=== PATIENT | female | born 1955 | race Caucasian/White ===

== ENCOUNTER 2016-10-25 12:53 | Observation (INO) | payer BC ==
[~2016-10-25] VITALS: Ht 162.6 cm; Wt 80.0 kg
[~2016-10-25 12:53] MED LIST: ALBU17I INH; KETO10 PO; LORA10TA7 PO; LORT7.5T3 PO
--- NOTE | 2016-10-25 13:55 | PD ---
HPI Chief Complaint: Numbness/Tingling Time Seen by Provider: 13:40 Travel History International Travel<30 days: No Contact w/Intl Traveler<30days: No Traveled to known affect area: No History of Present Illness HPI The patient was seen and examined in the presence of the nurse. This patient has had 4 episodes over the last 6 weeks where she developed a brief spell of weakness and numbness in her left arm. It lasts about 3 or 4 minutes and resolves. She never had any chest pain or pressure or tightness or heaviness. No headache or neck pain. There is been no injury. She doesn't take any blood thinners. No history of CVA or OH. No alleviating factors. They spontaneously resolve on the wrong. Severity of symptoms is moderate when present but currently she is asymptomatic. PFSH Past Medical History Cancer: No Diabetes: No Glaucoma: No Hepatitis: Yes (HEP A) Hiatal Hernia: No Hypertension: No Thyroid Disease: No Past Surgical History Gynecologic Surgery: Yes (TUBAL LIG) Pacemaker: No Thoracic Surgery: Yes (SHERLY. BREAST REDUX) Social History Alcohol Use: Yes (OCCAS) Tobacco Use: Yes (QUIT 19 YRS) Allergies-Medications (Allergen,Severity, Reaction): Coded Allergies: Penicillin (Verified Allergy, Severe, SWELLING, 06/27/08) Reported Meds & Prescriptions Reported Meds & Active Scripts Active Review of Systems General / Constitutional: No: Fever Eyes: No: Visual changes HENT: No: Headaches Cardiovascular: No: Chest Pain or Discomfort Respiratory: No: Shortness of Breath Gastrointestinal: No: Abdominal Pain Genitourinary: No: Dysuria Musculoskeletal: No: Pain Skin: No Rash Neurologic: Positive: Weakness, Sensory Disturbance Psychiatric: No: Depression Endocrine: No: Polydipsia Hematologic/Lymphatic: No: Easy Bruising Physical Exam Narrative GENERAL: Well-nourished, well-developed patient in no apparent distress. SKIN: Warm and dry. HEAD: Atraumatic. Normocephalic. EYES: Pupils equal and round. No scleral icterus. No injection or drainage. ENT: No nasal bleeding or discharge. Mucous membranes pink and moist. NECK: Trachea midline. No JVD. CARDIOVASCULAR: Regular rate and rhythm. No murmur appreciated. RESPIRATORY: No accessory muscle use. Clear to auscultation. Breath sounds equal bilaterally. GASTROINTESTINAL: Abdomen soft, non-tender, nondistended. Hepatic and splenic margins not palpable. MUSCULOSKELETAL: No obvious deformities. No clubbing. No cyanosis. No edema. NEUROLOGICAL: Awake and alert. No obvious cranial nerve deficits. Motor grossly within normal limits. Normal speech. Sensation subjectively intact PSYCHIATRIC: Appropriate mood and affect; insight and judgment normal. Data Data Orders Electrocardiogram (10/25/16 ) Ct Brain W/O Iv Contrast(Rout) (10/25/16 ) Ckmb (Isoenzyme) Profile (10/25/16 14:38) Troponin I (10/25/16 14:38) Complete Blood Count With Diff (10/25/16 14:38) Basic Metabolic Panel (Bmp) (10/25/16 14:38) Prothrombin Time / Inr (Pt) (10/25/16 14:38) Act Partial Throm Time (Ptt) (10/25/16 14:38) Labs Laboratory Tests Test 10/25/16 14:40 White Blood Count 7.1 TH/MM3 Red Blood Count 4.18 MIL/MM3 Hemoglobin 12.8 GM/DL Hematocrit 38.1 % Mean Corpuscular Volume 91.1 FL Mean Corpuscular Hemoglobin 30.5 PG Mean Corpuscular Hemoglobin 33.5 % Concent Red Cell Distribution Width 14.6 % Platelet Count 292 TH/MM3 Mean Platelet Volume 10.8 FL Neutrophils (%) (Auto) 55.2 % Lymphocytes (%) (Auto) 26.1 % Monocytes (%) (Auto) 11.0 % Eosinophils (%) (Auto) 6.0 % Basophils (%) (Auto) 1.7 % Neutrophils # (Auto) 3.9 TH/MM3 Lymphocytes # (Auto) 1.9 TH/MM3 Monocytes # (Auto) 0.8 TH/MM3 Eosinophils # (Auto) 0.4 TH/MM3 Basophils # (Auto) 0.1 TH/MM3 CBC Comment DIFF FINAL Differential Comment Prothrombin Time 11.1 SEC Prothromb Time International 1.0 RATIO Ratio Activated Partial 28.2 SEC Thromboplast Time MDM Medical Decision Making Medical Screen Exam Complete: Yes Emergency Medical Condition: Yes Medical Record Reviewed: Yes Differential Diagnosis Radiculopathy, neuropathy, CVA, TIA Narrative Course I have reviewed the patient's electronic medical record. Patient at this time is asymptomatic and is neurologically intact. She's had a few episodes of very brief left arm weakness and numbness. I don't have clinical suspicion of ACS or CVA. Seems more consistent with radiculopathy or pinched nerve. Brain CT shows age-indeterminate right basal ganglion infarct I reviewed her EKG which shows sinus rhythm without ST elevation or ectopy CBC is normal Metabolic profile is pending but will be reviewed Coagulation studies are normal I gave her an aspirin Given that she is had four distinct episodes including this morning with left arm numbness and weakness and right sided CVA evident I have recommended 23 hour observation on telemetry for neurologic workup and patient is agreeable I discussed with hospitalist who agrees as well Diagnosis Primary Impression: TIA (transient ischemic attack) Qualified Code: G45.9 - Transient cerebral ischemia, unspecified type Admitting Information Admitting Physician Requests: Observation Jeremie Pennington MD Oct 25, 2016 13:54
[2016-10-25 15:05] LABS: AUTOMATED NEUTROPHIL # 3.9 TH/MM3 (1.8-7.7); BASOPHIL # 0.1 TH/MM3 (0-0.2); BASOPHIL % 1.7 % (0.0-2.0); EOSINOPHIL # 0.4 TH/MM3 (0-0.4); HEMATOCRIT 38.1 % (35.0-46.0); HEMO FLAGS DIFF FINAL; LYMPH % 26.1 % (9.0-44.0); LYMPHOCYTE # 1.9 TH/MM3 (1.0-4.8); MEAN CELL VOLUME 91.1 FL (80.0-100.0); MEAN CORPUSCULAR HEMOGLOBIN 30.5 PG (27.0-34.0); MEAN CORPUSCULAR HGB CONC 33.5 % (32.0-36.0); NEUT % 55.2 % (16.0-70.0); PLATELET COUNT 292 TH/MM3 (150-450); RED BLOOD COUNT 4.18 MIL/MM3 (4.00-5.30); RED CELL DISTRIBUTION WIDTH 14.6 % (11.6-17.2); WHITE BLOOD COUNT 7.1 TH/MM3 (4.0-11.0)
--- NOTE | 2016-10-25 15:12 | RADRPT ---
EXAM DATE/TIME: 10/25/2016 14:51 [facility] COMPARISON: No previous studies available for comparison. INDICATIONS : Left arm numbness and tingling off and on x2 months. RADIATION DOSE: 47.43 CTDIvol (mGy) MEDICAL HISTORY : None SURGICAL HISTORY : None. ENCOUNTER: Initial ACUITY: 2 months PAIN SCALE: 0/10 LOCATION: cranial TECHNIQUE: Multiple contiguous axial images were obtained of the head. Using automated exposure control and adj ustment of the mA and/or kV according to patient size, radiation dose was kept as low as reasonably a chievable to obtain optimal diagnostic quality images. FINDINGS: CEREBRUM: Age-indeterminate lacunar infarct in the right basal ganglia. The ventricles are normal for age. No evidence of midline shift, mass lesion, or hemorrhage.. No extra-axial fluid collections are seen. POSTERIOR FOSSA: The cerebellum and brainstem are intact. The 4th ventricle is midline. The cerebellopontine angle i s unremarkable. EXTRACRANIAL: Moderate severity partial opacification of the ethmoid sinuses. SKULL: The calvaria is intact. No evidence of skull fracture. CONCLUSION: 1. Age-indeterminate right basal ganglia lacunar infarct. 2. Ethmoid sinus disease. Dwight Chaves MD on October 25, 2016 at 15:08 Board Certified Radiologist. This report was verified electronically.
[2016-10-25 15:16] LABS: APTT (PATIENT) 28.2 SEC (24.3-30.1); PROTHROMBIN TIME - PATIENT 11.1 SEC (9.8-11.6)
[2016-10-25 15:44] LABS: ANION GAP 7 MEQ/L (5-15); BICARBONATE 28.8 MEQ/L (21.0-32.0); BLOOD UREA NITROGEN 12 MG/DL (7-18); CHLORIDE 102 MEQ/L (98-107); CREATINE KINASE 131 U/L (26-192); GLOMERULAR FILTRATION RATE 66 ML/MIN (>89); POTASSIUM 3.8 MEQ/L (3.5-5.1); SODIUM (NA) 138 MEQ/L (136-145)
[2016-10-25] MEDS ORDERED: ASPIRIN 325 MG TAB PO ONE (15:45)
[2016-10-25] MEDS ORDERED: BISACODYL 10 MG SUPP PR PRN (15:45)
[2016-10-25] MEDS ORDERED: SENNOSIDES 8.6 MG TAB PO PRN (15:45)
[2016-10-25] MEDS ORDERED: ACETAMINOPHEN 325 MG TAB PO PRN (15:45)
[2016-10-25] MEDS ORDERED: MAGNESIUM HYDROXIDE SUSP 30 ML CUP PO PRN (15:45)
[2016-10-25] MEDS ORDERED: NALOXONE HCL 0.4 MG/ML AMP IV PRN (15:45)
[2016-10-25] MEDS ORDERED: SODIUM CHLORIDE 0.9% FLUSH 5 ML FLUSH FLUSH PRN (15:45)
[2016-10-25] MEDS ORDERED: ONDANSETRON HCL 4 MG/2 ML VIAL IVP PRN (15:45)
[2016-10-25 15:56] LABS: CKMB 1.3 NG/ML (0.5-3.6)
[2016-10-25 17:40] VITALS: BP 166/70
[2016-10-25] MEDS: SODIUM CHLOR 0.9% 1000 ML INJ 1,000 ML IV SCH (18:13)
[2016-10-25] MEDS: SODIUM CHLORIDE 0.9% FLUSH 5 ML FLUSH FLUSH SCH (18:14)
[2016-10-25] MEDS: HEPARIN SODIUM - SQ 10,000 UNITS/ML VIAL SQ SCH (18:14)
[2016-10-25 18:31] VITALS: BP 146/69; PULSE 82; RESP 18; O2SAT 97
[2016-10-25 19:56] VITALS: BP 142/68; PULSE 76; RESP 20; TEMP 97.6; O2SAT 96
[2016-10-26 00:22] VITALS: BP 136/64; PULSE 60; RESP 20; TEMP 98; O2SAT 96
[2016-10-26] MEDS: SODIUM CHLOR 0.9% 1000 ML INJ 1,000 ML IV SCH (00:27)
[2016-10-26 03:42] VITALS: BP 121/55; PULSE 79; RESP 16; TEMP 98.1; O2SAT 92
[2016-10-26 04:00] VITALS: PULSE 60
[2016-10-26 04:53] LABS: BASOPHIL # 0.1 TH/MM3 (0-0.2); BASOPHIL % 1.8 % (0.0-2.0); EOSINOPHIL # 0.4 TH/MM3 (0-0.4); EOSINOPHIL % 6.2 % (0.0-4.0); HEMATOCRIT 36.1 % (35.0-46.0); HEMO FLAGS DIFF FINAL; LYMPH % 31.7 % (9.0-44.0); MEAN CORPUSCULAR HEMOGLOBIN 30.6 PG (27.0-34.0); MEAN CORPUSCULAR HGB CONC 33.6 % (32.0-36.0); MONO % 12.6 % (0.0-8.0); NEUT % 47.7 % (16.0-70.0); PLATELET COUNT 258 TH/MM3 (150-450); RED BLOOD COUNT 3.96 MIL/MM3 (4.00-5.30); RED CELL DISTRIBUTION WIDTH 14.4 % (11.6-17.2); WHITE BLOOD COUNT 6.4 TH/MM3 (4.0-11.0)
[2016-10-26 05:11] LABS: BICARBONATE 26.3 MEQ/L (21.0-32.0); POTASSIUM 3.8 MEQ/L (3.5-5.1)
[2016-10-26 05:13] LABS: HDL CHOLESTEROL 42.2 MG/DL (40.0-60.0)
[2016-10-26] MEDS: HEPARIN SODIUM - SQ 10,000 UNITS/ML VIAL SQ SCH (05:17)
[2016-10-26] MEDS ORDERED: GADODIAMIDE PF 287 MG/ML 20 ML VIAL (for RAD MRI) IV ONE (07:54)
[2016-10-26 08:00] VITALS: BP 149/65; PULSE 71; RESP 18; TEMP 96.9; O2SAT 97
[2016-10-26 08:01] LABS: INDIRECT BILIRUBIN 0.2 MG/DL (0.0-0.8); TOTAL BILIRUBIN ADULT 0.3 MG/DL (0.2-1.0)
--- NOTE | 2016-10-26 08:15 | RADRPT ---
EXAM DATE/TIME: 10/26/2016 07:39 [facility] COMPARISON: No previous studies available for comparison. INDICATIONS : Left sided weakness. Syncope with falling. MEDICAL HISTORY : Hypertension. SURGICAL HISTORY : Tonsillectomy. Cholecystectomy. Tubal ligation. Bladder sling. Orthopedic. Breast reduction. ENCOUNTER: Initial ACUITY: 1 day PAIN SCORE: 0/10 LOCATION: cranial TECHNIQUE: Multiplanar, multisequence MRI of the brain was performed without contrast. FINDINGS: CEREBRUM: The ventricles are normal for age. No evidence of midline shift, mass lesion, hemorrhage or acute in farction. No extraaxial fluid collections are seen. The pituitary gland and suprasellar cistern are normal in configuration. WHITE MATTER: No significant signal abnormalities are seen in the white matter. POSTERIOR FOSSA: The cerebellum and brainstem are intact. The 4th ventricle is midline. The cerebellopontine angle is unremarkable. The cerebellar tonsils are normal in position. DIFFUSION IMAGING: No focal areas of restricted diffusion are seen. No evidence of acute infarction. EXTRACRANIAL: The visualized portions of the orbits are unremarkable. Complete opacification of a small right maxil gordon sinus. CONCLUSION: 1. No acute intracranial abnormality. No acute infarction seen. 2. Complete opacification of a small right maxillary sinus. Ion Orellana MD on October 26, 2016 at 8:08 Board Certified Radiologist. This report was verified electronically.
--- NOTE | 2016-10-26 08:27 | RADRPT ---
EXAM DATE/TIME: 10/26/2016 07:39 [facility] COMPARISON: No previous studies available for comparison. INDICATIONS : Left sided weakness. Syncope with falling. CONTRAST: 20 cc Omniscan (gadodiamide) IV MEDICAL HISTORY : Hypertension. SURGICAL HISTORY : Tonsillectomy. Cholecystectomy. Tubal ligation. Bladder sling. Orthopedic. Breast reduction. ENCOUNTER: Initial ACUITY: 1 day PAIN SCORE: 0/10 LOCATION: cranial Percent stenosis is calculated using the diameter of the stenotic region over the diameter of the nor mal distal internal carotid artery. TECHNIQUE: Bolus infused MRA of the extracranial circulation was performed using a neurovascular coil. Post pro cessing was performed including rotationg subvolume maximum intensity projections of each carotid art jose, rotating full volume maximum intensity projections of both carotid arteries, sagittal and angelo l sliding thin slab reformations of each carotid artery, and left oblique sliding thin slab reformati on through the aortic arch to include the origin of the arch branch vessels. FINDINGS: AORTIC ARCH: There is a three vessel origin of the great vessels from the aorta. No evidence of ostial narrowing. RIGHT CAROTID: The common carotid artery is intact. The carotid bulb has a normal configuration without ulceration or narrowing. The internal carotid artery lumen is smooth without stenosis. The external carotid ar krystyna is intact. LEFT CAROTID: The common carotid artery is intact. The carotid bulb has a normal configuration without ulceration or narrowing. The internal carotid artery lumen is smooth without stenosis. The external carotid ar krystyna is intact. VERTEBRALS: The vertebral arteries have a symmetric diameter. No stenotic lesions are seen. CONCLUSION: Normal carotid arteries. Ion Orellana MD on October 26, 2016 at 8:16 Board Certified Radiologist. This report was verified electronically.
[2016-10-26] MEDS ORDERED: PANTOPRAZOLE SOD 40 MG DELAYED RELEASE TAB PO SCH (09:00)
[2016-10-26] MEDS: SODIUM CHLORIDE 0.9% FLUSH 5 ML FLUSH FLUSH SCH (09:00)
[2016-10-26] MEDS ORDERED: ASPIRIN 81 MG CHEW TAB CHEW SCH (09:00)
--- NOTE | 2016-10-26 11:15 | HP.UPD ---
H&P Update Note This is a very pleasant 61-year-old female who came into the emergency department at [facility] yesterday with weakness in the left upper extremity. She said that she had had some trouble with her cervical spine in the past. 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 Initial CT scan of the brain showed a suspicion of a stroke however MRI was negative. She was seen and examined earlier today by the undersigned in room f 69 She was seen by the on-call neurologist today, Dr. Cook. She is being discharged home in stable condition on baby aspirin. She will be following with neurology as outpatient for further management of her possible cervical nerve impingement Yeison Jane MD Oct 26, 2016 11:13
[2016-10-26] MEDS ORDERED: ASPI81TA11 PO (11:17)
[2016-10-26 12:00] VITALS: PULSE 61
[2016-10-26 12:07] LABS: BLOOD, URINE NEG (NEG); GLUCOSE,URINE NEG (NEG); KETONE, URINE NEG (NEG); NITRITE,URINE NEG (NEG); SQUAMOUS EPITHELIAL CELL URINE 2 /hpf (0-5); URINE COLOR YELLOW (YELLW/STRAW)
[2016-10-26 12:12] LABS: COMMENT (UR) CULT NOT INDICATED; CULTURE IF INDICATED CULT NOT INDICATED
[2016-10-26] MEDS ORDERED: ATORVASTATIN 20 MG TAB PO SCH (21:00)
--- NOTE | 2016-10-27 05:31 | MB ---
cc: NOMI DAVID MD DATE OF : 1955 DATE OF CONSULTATION: 10/26/2016 REASON FOR CONSULTATION: TIA HISTORY OF PRESENT ILLNESS Ms. Anderson is a 61 year-old female who presented to the emergency room at [facility] with weakness in the left upper extremity. The patient describes weakness and numbness of the left upper extremity that starts suddenly and denies involvement of the left side of the face, headache, double vision, blurred vision, slurred speech, or weakness of the lower extremity. This has happened two times when the patient was up and working at home, and the last time it happened when she was at work sitting at the computer working. She denies history of head trauma, loss of consciousness, disorientation, convulsions. The patient states she has ringing in the left ear. She states she had some "trouble with her cervical spine in the past." She uses the computer all day. Initial head CT scan without contrast was reported with possible age indeterminate right basal ganglia lacunar infarct with ethmoid sinus disease. However, MRI of the brain without contrast revealed no acute abnormality and no acute infarction seen, complete opacification of the right maxillary sinus was noted. REVIEW OF SYSTEMS A 12-point review of systems is negative except for what is stated in the HPI. PAST MEDICAL HISTORY Hepatitis A. PAST SURGICAL HISTORY 1. Tubal ligation. 2. Bilateral breast reduction. SOCIAL HISTORY: Occasional alcohol, ex tobacco smoker. Denies recreational drug abuse. ALLERGIES PENICILLIN EXAMINATION General: Awake, alert, very good historian not in apparent distress HEENT: Atraumatic, normocephalic. Intact vision, intact hearing Neck: Trachea in the midline. No signs of meningeal irritation. Cardiovascular: Regular rate and rhythm. No murmurs. Respiratory: Clear to auscultation. No wheezes. Musculoskeletal: No deformities. No clubbing, no edema. Neurological: Awake, alert, oriented to time, person and place. Intact speech content. Intact memory. Cranial nerves II-XII are grossly intact. Muscle strength, bilateral symmetrical 5/5, no abnormal movement, normal tone. Sensation is intact bilateral and symmetrical. Reflexes brisk upper extremities 2+ with finger flexion bilateral, plantars are bilaterally downgoing. Cerebellar function, [id number] and [id number] are intact. Gait and stance normal. Intact tandem gait, negative Romberg sign. Psychologic: Mood and behavior are appropriate, insight and judgment are normal. LABORATORY DATA White blood cells 7.1, hemoglobin 12.8, platelet 292, INR 1. DIAGNOSTICS IMAGING - Head CT scan was reported as with age indeterminate right basoganglia lacunar infarct, ethmoid sinus disease. - MRI of the brain without contrast was reported with no acute intracranial abnormality and complete opacification of right maxillary sinus. - MRA was reported with normal carotid arteries, no stenosis seen. DIAGNOSTIC IMPRESSION 1. TIA. 2. Cervical degenerative disk disease. PLAN 1. Aspirin 81 mg daily. 2. Follow up with neurology as an outpatient for further workup for her cervical spine and muscular tests. Thank you for the opportunity to participate in the care of your patient. MD PATRICIA Gutierrez/BOBBY /11:55 PM /4:52 AM VISH
--- NOTE | 2016-10-27 11:46 | EKG ---
Date Performed: 10/25/2016 Time Performed: 13:55:30 PTAGE: 61 years EKG: Sinus rhythm NONSPECIFIC T-WAVE ABNORMALITY BORDERLINE ECG NO PREVIOUS TRACING DOCTOR: Mitzi Arroyo Interpretating Date/Time 10/27/2016 11:45:26
--- NOTE | 2016-10-29 08:38 | MH ---
cc: GABBY MCGILL MD DATE OF ADMISSION: 10/25/2016 DATE OF : 1955 CHIEF COMPLAINT Left-sided weakness and numbness. HISTORY OF PRESENT ILLNESS This is a pleasant 61-year-old white mildly obese female who has been in her usual state of health up until before Melissa. She has noted approximately three episodes of some weakness and numbness on her left side. She states the first one was before Melissa and it only lasted a few minutes. She states that she was tired, over-stressed and had a lot going on at [place] so she did not think anything about it. She denies any fever, no headache, no chest pain, no shortness of breath. The patient did have a bout of bronchitis several weeks before this incident and had been on antibiotics and steroids and thought that might have been part of what was making her feel bad. She denies any dizziness. No syncopal episodes. No recent weight gain or weight loss. No palpitations. The patient had seen her PCP last week and he had thought that she may need to see cardiology and GI for check-ups to make sure nothing else was going on. The patient has had some abdominal pain and bloating more of a chronic nature and thinks that she may be lactose intolerant. She and her GI doctor are planning some testing in the near future. She had an appointment with cardiology, Dr. Fitch, but has not been able to see him yet before she had this incident with the numbness and weakness happening again. She did have some palpitations that she saw him for in 2013 or 2014, had an echo and a stress test. She states he told her that she might have a very small blockage on the bottom backside of her heart but he did not think it was anything to worry about at this time. She has had no heart caths. Currently the patient is having none of her symptoms now and is going downstairs for an MRI. PAST MEDICAL HISTORY 1. Sinus disease. 2. Hepatitis A. PAST SURGICAL HISTORY 1. Tubal ligation. 2. Bilateral breast reduction. ALLERGIES Penicillin. MEDICATIONS None brought in. SOCIAL HISTORY The patient is , currently lives at home with her . She is raising her 10-year-old grandchild. She denies any tobacco use, quit approximately 19 years ago. Minimal social alcohol use. Currently is on a dietary regimen. FAMILY HISTORY Arthritis. REVIEW OF SYSTEMS A 12-point review was obtained with positives and negatives initiated in the HPI which include weakness and numbness on the left side, anxiety over her current condition mild, obesity mild. Other systems are negative or unremarkable. PHYSICAL EXAMINATION VITAL SIGNS: Temperature 98.1, pulse 79, respirations 16, blood pressure 121/65. Her blood pressure on admission to the ER was 166/70 and 142/68, and has continued to climb down. O2 sat between 92 and 98. GENERAL: This is a mildly obese, well-nourished, well-developed white female who looks her stated age, resting in the bed. No acute distress at this time. SKIN: [place], warm and dry. HEENT: Atraumatic, normocephalic. PERRLA at 3 mm. No scleral icterus. No drainage from her eyes, ears or oral cavity. Mucous membranes are pink and moist. Trachea is midline. NECK: Supple. HEART: S1, S2. Distant heart sounds but no murmurs, rubs or gallops appreciated. LUNGS: Clear to auscultation anteriorly and posteriorly with equal breath sounds bilaterally. ABDOMEN: Round, soft, nontender, nondistended. EXTREMITIES: She moves all extremities with purpose. No clubbing, cyanosis or edema. No pedal edema. Pulses are intact. NEUROLOGIC: Awake and alert x4, a good historian. 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 Speech is normal and clear. PSYCHIATRIC: Appropriate mood and affect. Insight and judgment is normal. Mild anxiety over current condition. DIAGNOSTIC DATA INR is 1. White count 6.4, RBC 3.96, hemoglobin 12.1, hematocrit 36.1, platelet count 0.25%, mono absolute 12.6, eosinophils 6.2. Sodium 142, potassium 3.8, chloride 108, carbon dioxide 26.3, anion gap 8, BUN 10, creatinine 0.86, GFR 67, random glucose 94, calcium 8.5. We have pending labs with bilirubin, AST, ALT, albumin. Troponin is less than 0.02. Triglycerides 168, LDL 109, total cholesterol 185, HDL 42.2. Imaging studies show a CT scan with ethmoid sinus disease and an undetermined right basal ganglia infarct. ASSESSMENT 1. TIA, possible CVA. 2. Sinus disease. 3. Anxiety, mild. 4. Obesity. 5. Hyperlipidemia. PLAN Our plan is to admit for observation. DVT prophylaxis with an aspirin chew and heparin. PUD prophylaxis with Protonix. The patient will have a UA and C&S if warranted to finish up labs. MRI, MRA, 2-D echo. Neurology has been consulted for expert opinion. Vital signs will be q.4h. Cardiac telemetry monitoring. Heart-healthy diet. Reconcile her medications. EKG. Bed rest with bedside commode. Only up with help. Maintain with her telemetry. After further testing we will follow her needs. Dictated by: CARL Chase MD JAMES Damon/LIYAH /7:54 AM 8:37 AM
== END 2016-10-26 15:25 | disposition home or self-care (01) ==
LOC: NEPB 12:53 → NEDA 15:43 → NEPFCDU 18:02
PROVIDERS: ADMIT Specialist; ATTEND Specialist
DX: G45.9 Transient cerebral ischemic attack, unspecified (principal); F41.9 Anxiety disorder, unspecified; E78.5 Hyperlipidemia, unspecified; E66.9 Obesity, unspecified; M50.30 Other cervical disc degeneration, unspecified cervical region; R94.31 Abnormal electrocardiogram [ECG] [EKG]; Z87.891 Personal history of nicotine dependence; Z79.82 Long term (current) use of aspirin; Z68.30 Body mass index [BMI] 30.0-30.9, adult
CPT/HCPCS: 70450; 70548; 70551; 80048; 80061; 80076; 81001; 82550; 82552; 84484; 85025; 85610; 85730; 93005; 99285; A9579; G0378; J1644; J7030